=== PATIENT | female | born 1945 | race Caucasian/White ===

== ENCOUNTER → 2025-02-15 14:57 | Outpatient (CLI) | payer MEDICARE, SELFPAY | LOC: LAB 14:58 | PROVIDERS: Visit Provider Student in an Organized Health Care Education/Training Program | DX: R31.9 Hematuria, unspecified (principal) | CPT/HCPCS: 87086 ==

== ENCOUNTER 2025-02-28 09:58 | Emergency (ER) | payer MEDICARE, SELFPAY ==
[2025-02-28] VITALS (18 sets, daily range): BP systolic 96–113; BP diastolic 51–57; PULSE 64–96; RESP 18–38; TEMP 37.4; O2SAT 94–99; BMI 19.2
--- NOTE | 2025-02-28 10:44 | PC.NURSE ---
unsuccessful IV attempt x 2, gauze placed, labs were obtained.
--- NOTE | 2025-02-28 10:46 | ED_ITS ---
HPI - General Adult General Chief complaint: Abdominal Pain Stated complaint: Fever 102.5 last night, bloody loose stool Time Seen by Provider: 02/28/25 10:13 Source: patient Mode of arrival: Ambulatory History of Present Illness HPI narrative: 79-year-old woman who lives on her boat in [facility] no prescription medications presents complaining of diarrhea starting last night, foul-smelling, fever to 102.5 increasing weakness and overall concerned that perhaps or something in the water lines in the both that may be creating her issues. She notes that 3 weeks ago she had a severe upper respiratory infection she was actually sick for a week and the more covering for another week. She had developed some bloody urine was treated with antibiotics after being seen by an urgent care in [place], did not seem to improve, was seen again at an urgent care here started on cephalexin which was associated with the gross hematuria resolving so she chose to continue the complete prescription despite urinalysis showing no growth. The gross hematuria has resolved. The diarrhea that is develop she describes as a bilious yellow with no blood in. Over the last 1-2 days she has been having increasing malaise, generalized abdominal pain, decreased appetite, has not been eating drinking much but has not had any overt vomiting. No chest pain, cough, headaches Related Data Previous Rx's ?Medication ?Instructions ?Recorded fidaxomicin 200 mg tablet 200 mg PO Q12H 10 days #20 t abs 02/28/25 vancomycin 125 mg capsule 125 mg PO QID #40 caps 02/28 Allergies Allergy/AdvReac Type Severity Reaction Status Date / Time Sulfa (Sulfonamide Allergy ITCHING Verified 02/28/25 10:12 Antibiotics) Review of Systems Review of Systems Narrative: Pertinent positive and negative findings as per HPI Patient History Social History Smoking Status: Never smoker Smoking Status: Never smoker Exam Initial Vital Signs Initial Vital Signs: Vital Signs Temperature 99.4 F 02/28/25 10:12 Pulse Rate 96 H 02/28/25 10:12 Respiratory Rate 18 02/28/25 10:12 Blood Pressure 108/57 L 02/28/25 10:12 Pulse Oximetry 96 02/28/25 10:12 Oxygen Delivery Method Room Air 02/28/25 10:12 General: Slightly fatigued but overall in no acute distress. Able to give a complete and coherent history. HEENT: Dry mucous membranes, normal sclera with reactive pupils, Respiratory: Lungs are clear to auscultation, no wheezing no rales no rhonchi. Full and symmetrical air movement Cardiac: Regular rate and rhythm no murmurs no bruits Abdomen: Soft, nontender, she does not have hyper bowel tones, no rebound or guarding, no flank pain Skin: Warm and dry, no rashes Neurologic: Grossly neurologically intact with no obvious asymmetries or abnormalities Extremities: No trauma, well perfused Psych: Cooperative, appropriate insight and affect Course Orders Ordered: ED Orders 02/28/25 10:48 Complete Blood Count AUTO DIFF Stat Comprehensive Metabolic Panel Stat Lipase Stat 02/28/25 12:30 GI Panel (Film Array) Stat Urinalysis Screen (Dip Only) Stat Urine Microscopic Stat Ondansetron HCl (Ondansetron 4 Mg/2 Ml Inj) 4 mg IV NOW PRN PRN Reason: Nausea And Vomiting Last Admin: 02/28/25 10:52 Dose: 4 mg Documented By: KARLA Ondansetron HCl (Ondansetron 4 Mg Odt) 4 mg PO NOW PRN PRN Reason: Nausea And Vomiting Discontinued Medications Sodium Chloride (Normal Saline 0.9%) 1,000 mls @ 1,000 mls/hr IV BOLUS ONE Stop: 02/28/25 11:56 Last Infusion: 02/28/25 12:44 Dose: Infused Documented By: Admin: 02/28/25 11:05 Dose: 1,000 mls/hr Documented By: KARLA Ondansetron HCl (Ondansetron 4 Mg/2 Ml Inj) 4 mg IV NOW ONE Stop: 02/28/25 10:58 Last Admin: 02/28/25 11:23 Dose: Not Given Documented By: KARLA Vital Signs Vital signs: Vital Signs - 8 hr 02/28/25 10:12 02/28/25 10:13 02/28/25 10:13 Temperature 99.4 F Pulse Rate 96 H 92 H Pulse Rate [Orthostatic Lying] Pulse Rate [Orthostatic Sitting] Pulse Rate [Orthostatic Standing] Respiratory Rate 18 Blood Pressure 108/57 L 108/57 L Blood Pressure [Orthostatic Lying] Blood Pressure [Orthostatic Sitting] Blood Pressure [Orthostatic Standing] Pulse Oximetry 96 96 Oxygen Delivery Method Room Air 02/28/25 10:30 02/28/25 10:30 02/28/25 11:00 Temperature Pulse Rate 91 H Pulse Rate [Orthostatic Lying] Pulse Rate [Orthostatic Sitting] Pulse Rate [Orthostatic Standing] Respiratory Rate 18 Blood Pressure 97/51 L 96/55 L Blood Pressure [Orthostatic Lying] Blood Pressure [Orthostatic Sitting] Blood Pressure [Orthostatic Standing] Pulse Oximetry 96 Oxygen Delivery Method 02/28/25 11:00 02/28/25 11:29 02/28/25 11:30 Temperature Pulse Rate 89 78 Pulse Rate [Orthostatic Lying] Pulse Rate [Orthostatic Sitting] Pulse Rate [Orthostatic Standing] Respiratory Rate 20 20 Blood Pressure 109/56 L Blood Pressure [Orthostatic Lying] Blood Pressure [Orthostatic Sitting] Blood Pressure [Orthostatic Standing] Pulse Oximetry 94 99 Oxygen Delivery Method 02/28/25 11:30 02/28/25 12:00 02/28/25 12:00 Temperature Pulse Rate 78 82 Pulse Rate [Orthostatic Lying] Pulse Rate [Orthostatic Sitting] Pulse Rate [Orthostatic Standing] Respiratory Rate Blood Pressure 105/54 L Blood Pressure [Orthostatic Lying] Blood Pressure [Orthostatic Sitting] Blood Pressure [Orthostatic Standing] Pulse Oximetry 98 98 Oxygen Delivery Method Room Air 02/28/25 13:51 Temperature Pulse Rate Pulse Rate [Orthostatic Lying] 75 Pulse Rate [Orthostatic Sitting] 82 Pulse Rate [Orthostatic Standing] 86 Respiratory Rate Blood Pressure Blood Pressure [Orthostatic Lying] 106/53 L Blood Pressure [Orthostatic Sitting] 106/52 L Blood Pressure [Orthostatic Standing] 107/54 L Pulse Oximetry Oxygen Delivery Method Medical Decision Making Lab Data 02/28/25 10:48 02/28/25 10:48 Labs: Lab Results 02/28/25 02/28/25 Range/Units 10:48 12:30 WBC 11.9 H (4.5-11.0) X10^3/uL RBC 4.13 (4.0-5.2) X10^6/uL Hgb 12.5 (12.0-16.0) g/dL Hct 37.0 (36-46) % MCV 89.5 (80-100) fL MCH 30.3 (26-34) PG MCHC 33.9 (30-36) % RDW 13.3 (11.6-14.8) % Plt Count 219 (150-400) X10^3/uL Neut % (Auto) 81.8 H (50-75) % Lymph % (Auto) 6.1 L (25-40) % [place] % (Auto) 11.9 (3-14) % Eos % (Auto) 0.0 L (2-4) % Baso % (Auto) 0.2 (0-2) % Neut # (Auto) 9700 H (8571-8516) /uL Lymph # (Auto) 700 L (1138-7488) /uL [place] # (Auto) 1400 H (0-900) /uL Eos # (Auto) 0 (0-450) /uL Baso # (Auto) 0 (0-100) /uL Sodium 131 L (137-145) mmol/L Potassium 3.9 (3.4-5.1) mmol/L Chloride 99 (98-107) mmol/L Carbon Dioxide 22 (22-32) mmol/L BUN 26 H (7-17) mg/dL Creatinine 0.82 (0.52-1.04) mg/dL Estimated GFR > 60 (>60) mL/min BUN/Creatinine Ratio 31.7 H (6-22) Glucose 141 H (70-99) mg/dL Calcium 8.9 (8.4-10.2) mg/dL Total Bilirubin 1.0 (0.2-1.3) mg/dL AST 31 (14-36) IU/L ALT 21 (<35) IU/L Alkaline Phosphatase 72 (38-126) U/L Total Protein 7.3 (6.3-8.2) g/dL Albumin 4.3 (3.5-5.0) g/dL Globulin 3.0 (1.7-4.1) g/dL Albumin/Globulin Ratio 1.4 (1.0-2.8) Lipase 21 L (23-300) U/L Urine Color Yellow Urine Appearance Clear Urine pH 5.5 (4.5-8.0) Ur Specific [place] 1.015 (1.000-1.035) Urine Protein Trace H (Negative) Urine Glucose (UA) Negative (Negative) g/dL Urine Ketones Trace H (NEGATIVE) Urine Occult Blood Trace-intact (Negative) Urine Nitrate Negative (Negative) Urine Bilirubin Negative (NEGATIVE) Urine Urobilinogen 0.2 (0.2) E.U./dL Ur Leukocyte Esterase Negative (NEGATIVE) Urine RBC 1-5/hpf (0-5/HPF) Urine WBC 0-1/hpf (0-5/HPF) Ur Squamous Epith Cells 0-1 /hpf (0-5/HPF) Urine Bacteria None seen (None) Ur Culture Indicated? Cult not indicated Vol Urine Centrifuged 10ml (spun) Stl C. cayetanensis PCR Not detected (Not Detect) Stool Rotavirus (PCR) Not detected (Not Detect) Stool Adenovirus (PCR) Not detected (Not Detect) Stool Astrovirus (PCR) Not detected (Not Detect) Stool Cryptosporidium PCR Not detected (Not Detect) Stl E.coli Shiga Tox PCR Not detected (Not Detect) St Sh/Enteroin Ecoli PCR Not detected (Not Detect) Stl Enterotoxigenic E PCR Not detected (Not Detect) Stool EPEC (PCR) Not detected (Not Detect) Stl E. histolytica PCR Not detected (Not Detect) Stool Giardia Lamblia PCR Not detected (Not Detect) Stool Sapovirus (PCR) Not detected (Not Detect) Stl P. shigelloides PCR Not detected (Not Detect) St Y.enterocolitica PCR Not detected (Not Detect) Stool Vibrio (PCR) Not detected (Not Detect) Stl Vibrio cholerae PCR Not detected (Not Detect) Stl Enteroaggr Ecoli PCR Not detected (Not Detect) Stl Norovirus GI/GII PCR Not detected (Not Detect) Campylobacter (PCR) Not detected (Not Detect) C. difficile Tox (PCR) Detected H (Not Detect) Salmonella (PCR) Not detected (Not Detect) MDM Narrative Medical decision making narrative: CC: Fever with the abdominal pain Complicating co-morbidities: Recent antibiotics for gross hematuria, eventual urine culture did not show urinary tract infection Data collected from: patient Social determinants of health that may influence the patients condition: Currently living off of her both in [facility] Medical records reviewed: Urgent care note from February 15 with subsequent negative urine culture reviewed Differential considered: Clostridium difficile, infectious diarrhea, viral gastroenteritis Exam documented above, pertinent findings include: Patient appears somewhat fatigued but exam is otherwise benign. Abdomen is minimally tender but certainly no acute abdomen Lab Test results independently reviewed as above. Pertinent findings: CBC shows mild leukocytosis at 11.9 with left shift at 81.8. No anemia Chemistries are reassuring with normal renal function. Slightly increased BUN. Liver studies are unremarkable Lipase is normal Urine does not suggest infection Stool returns positive for C diff Treatments: Fluids and Zofran are given, initial dose of digoxin given Discussion: Patient is feeling somewhat better, blood pressures are closer to her baseline which she reports are typically quite low with systolics under 110 at her baseline. Reviewed findings, currently there is no indication for severe surgical complications of her C diff and no signs of sepsis. She will be given a prescription for fidaxomicin 200 mg twice a day for 10 days, we will also give her a prescription for vancomycin 125 mg orally 4 times a day for 10 days if she has difficulty obtaining the fidaxomicin prescription she can use this as a backup. I will also be given a prescription for Zofran, explained anticipated course of disease, complications and reasons to return to the emergency department. This point there was no indication for further imaging or hospitalization and she is safe for discharge Discharge Plan Departure Patient Disposition: Home Clinical Impression: C. difficile diarrhea Instructions: DI for Clostridioides difficile Infection Activity Restrictions/Additional Instructions: Thank you for coming in today Unfortunately it looks like the antibiotics used for your bladder infection have cause the good bacteria in your gut to as well. This leaves an opportunity for bacteria in your gut that can cause problems to grow. You are testing positive for Clostridium difficile. We need to put you on antibiotics that are not absorbed in your body, that kill only the Clostridium difficile but allow healthy bacteria to recall any your colon. I have given you a prescription for fidaxomicin for 10 days. This is first-line treatment but has been difficult to obtain and can be expensive. If you have difficulty filling this prescription than please use or second-line treatment which is vancomycin as a pill. You have been given prescriptions for both, you only need to fill 1 of these This is the type of diarrhea where you do not want to use Imodium, you want to get all of that out Please make sure you are staying hydrated. If you have worsening abdominal pain, worsening fevers, any blood in your stool or new findings you do need to return to the emergency department Prescriptions: New fidaxomicin 200 mg tablet 200 mg PO Q12H 10 Days Qty: 20 0RF vancomycin 125 mg capsule 125 mg PO QID Qty: 40 0RF Referrals: Miscellaneous,Doctor, [Primary Care Provider, Medical] Stand Alone Forms: Patient Portal/API
[2025-02-28] MEDS: ONDANSETRON 4 MG/2 ML INJ IV (10:52)
[2025-02-28 10:59] LABS: Add Manual Diff / Slide Review NO; Basophils Absolute Auto 0 /uL (0-100); Basophils Percent Auto 0.2 % (0-2); Eosinophils Absolute Auto 0 /uL (0-450); Hemoglobin 12.5 g/dL (12.0-16.0); Lymphocytes Absolute Auto 700 /uL (1100-4500); Lymphocytes Percent Auto 6.1 % (25-40); Mean Corpuscular HGB Conc 33.9 % (30-36); Mean Corpuscular Hemoglobin 30.3 PG (26-34); Mean Corpuscular Volume 89.5 fL (80-100); Monocytes Absolute Auto 1400 /uL (0-900); Monocytes Percent Auto 11.9 % (3-14); Neutrophils Absolute Auto 9700 /uL (1500-7000); Neutrophils Percent Auto 81.8 % (50-75); Platelet Count 219 X10^3/uL (150-400); Red Blood Cell Count 4.13 X10^6/uL (4.0-5.2); Red Cell Distribution Width 13.3 % (11.6-14.8); White Blood Cell Count 11.9 X10^3/uL (4.5-11.0)
[2025-02-28] MEDS: SODIUM CHLORIDE 0.9% 1,000 ML 1000 ML IV (11:05)
[2025-02-28 11:12] LABS: Alanine Aminotransferase 21 IU/L (<35); Albumin 4.3 g/dL (3.5-5.0); Albumin Globulin Ratio 1.4 (1.0-2.8); Alkaline Phosphatase 72 U/L (38-126); Aspartate Aminotransferase 31 IU/L (14-36); BUN Creatinine Ratio 31.7 (6-22); Blood Urea Nitrogen 26 mg/dL (7-17); Calcium 8.9 mg/dL (8.4-10.2); Carbon Dioxide 22 mmol/L (22-32); Chloride 99 mmol/L (98-107); Estimated Glomerular Filt Rate > 60 mL/min (>60); Glucose 141 mg/dL (70-99); HEMOLYSIS < 15 (0-50); Lipase 21 U/L (23-300); Potassium 3.9 mmol/L (3.4-5.1); Sodium 131 mmol/L (137-145); Total Protein 7.3 g/dL (6.3-8.2)
[2025-02-28 12:58] LABS: Appearance Urine UA CLEAR; Bilirubin Urine UA NEGATIVE (NEGATIVE); Color Urine UA YELLOW; Glucose Urine UA NEGATIVE (Negative); Ketones Urine UA TRACE (NEGATIVE); Leukocyte Esterase Urine UA NEGATIVE (NEGATIVE); Nitrite Urine UA NEGATIVE (Negative); Occult Blood Urine UA TRACE-INTACT (Negative); Protein Urine UA TRACE (Negative); Specific Gravity Urine UA 1.015 (1.000-1.035); Urobilinogen Urine UA 0.2 E.U./dL (0.2)
[2025-02-28 13:07] LABS: pH Urine UA 5.5 (4.5-8.0)
[2025-02-28 13:08] LABS: Urine Volume 10mL (spun)
[2025-02-28 13:09] LABS: Bacteria Urine None Seen; RBC Urine 1-5/HPF (0-5/HPF); Squamous Epithelial Cell Urine 0-1 /HPF (0-5/HPF); WBC Urine 0-1/HPF (0-5/HPF)
[2025-02-28 13:11] LABS: Culture Indicated Urine Cult Not Indicated
[2025-02-28 14:08] LABS: Adenovirus F 40/41 Not Detected (Not Detect); Astrovirus Not Detected (Not Detect); Campylobacter Not Detected (Not Detect); Clostridium difficile toxin AB Detected (Not Detect); Cryptosporidium Not Detected (Not Detect); Cyclospora cayetanensis Not Detected (Not Detect); Entamoeba histolytica Not Detected (Not Detect); Enteroaggregative E.coli Not Detected (Not Detect); Enteropathogenic E.coli Not Detected (Not Detect); Enterotoxigenic E.coli It/st Not Detected (Not Detect); Giardia lamblia Not Detected (Not Detect); Norovirus GI/GII Not Detected (Not Detect); Plesiomonsa shigelloides Not Detected (Not Detect); Rotavirus A Not Detected (Not Detect); Salmonella Not Detected (Not Detect); Sapovirus Not Detected (Not Detect); Shiga-like toxin-prod E.coli Not Detected (Not Detect); Shigella/Enteroinvasive E.coli Not Detected (Not Detect); Vibrio Not Detected (Not Detect); Vibrio cholerae Not Detected (Not Detect); Yersinia enterocolitica Not Detected (Not Detect)
[2025-02-28] MEDS: FIDAXOMICIN 200 MG TABLET PO (14:57)
== END 2025-02-28 15:25 | disposition home or self-care (01) ==
PROVIDERS: Emergency Provider Emergency Medicine
DX: A04.72 Enterocolitis due to Clostridium difficile, not specified as recurrent (principal); R50.9 Fever, unspecified
CPT/HCPCS: 36415; 80053; 81003; 81015; 83690; 85025; 87324; 87507; 96361; 96374; 99284; J2405

== ENCOUNTER → 2025-03-20 13:01 | Outpatient (CLI) | payer MEDICARE, SELFPAY ==
--- NOTE | 2025-03-20 13:04 | DI.CT.S_ITS ---
PROCEDURE: CT IVP A/P W/WO INDICATIONS: 79 y/o F w/ gross hematuria, eval upper tracts TECHNIQUE: Optional 5 mm thick noncontrast images acquired from the diaphragm to the symphysis pubis. After the administration of intravenous contrast, 5 mm thick images acquired from the diaphragm to the symphysis pubis after a 10-minute delay. 2 mm thick coronal and sagittal reformats were then performed of the kidneys and ureters. For radiation dose reduction, the following was used: automated exposure control, adjustment of mA and/or kV according to patient size. COMPARISON: None. FINDINGS: Image quality: Diagnostic. Kidneys and Ureters: There is a 5 x 3 millimeter calculus in the right renal pelvis. No ureteral calculi or hydronephrosis. No focal lesions or abnormal enhancement in the kidneys bilaterally. Bladder: Bladder wall thickness is normal. No calcified bladder stones. OTHER: Lower chest: Unremarkable. Liver: No solid mass. Gallbladder: No radiopaque gallstones or wall thickening. Biliary ducts: No biliary dilation. Pancreas: No ductal dilation. Spleen: Size is within normal limits. Adrenal Glands: No adrenal nodules. Stomach and Bowel: Normal colonic caliber, without significant wall thickening. Peritoneum: No abnormal intraperitoneal fluid. No free air. Ventral Wall: No hernia. Abdominal Nodes: No retroperitoneal or mesenteric adenopathy by size criteria. Vessels: Aorta and inferior vena cava are normal in size. PELVIS: Pelvic Organs: Unremarkable. Pelvic Nodes: No enlarged lymph nodes. Miscellaneous: No inguinal hernias are seen. Bones: No aggressive osseous abnormality. IMPRESSION: 1. There is a 5 millimeter nonobstructing calculus in the right renal pelvis. No ureteral calculi or signs of obstructive uropathy. 2. No suspicious focal lesions in the kidneys and upper tracts. Dictated by: Aquiles Mckenna M.D. on 03/20/2025 at 16:22 Approved by: Aqiules Mckenna M.D. on 03/20/2025 at 16:29
== END ==
PROVIDERS: Referring Provider Urology; Visit Provider Urology
DX: N20.0 Calculus of kidney (principal); R31.0 Gross hematuria
CPT/HCPCS: 74178; Q9967

== ENCOUNTER → 2025-04-11 16:39 | Outpatient (CLI) | payer MEDICARE, SELFPAY | PROVIDERS: Visit Provider Nurse Practitioner Family | DX: R31.0 Gross hematuria (principal) | CPT/HCPCS: 87086 ==

== ENCOUNTER 2025-04-13 11:43 | Emergency (ER) | payer MEDICARE, SELFPAY ==
[2025-04-13 12:01] VITALS: PULSE 87; O2SAT 96
[2025-04-13 12:02] VITALS: BP 132/63; PULSE 90; O2SAT 97
[2025-04-13 12:08] LABS: Appearance Urine UA CLEAR; Bilirubin Urine UA 1+ (NEGATIVE); Color Urine UA YELLOW; Glucose Urine UA NEGATIVE (Negative); Ketones Urine UA TRACE (NEGATIVE); Leukocyte Esterase Urine UA TRACE (NEGATIVE); Nitrite Urine UA POSITIVE (Negative); Occult Blood Urine UA TRACE-INTACT (Negative); Protein Urine UA 2+ (Negative); Specific Gravity Urine UA >=1.030 (1.000-1.035); Urobilinogen Urine UA 0.2 E.U./dL (0.2)
[2025-04-13 12:09] LABS: pH Urine UA 5.5 (4.5-8.0)
[2025-04-13 12:10] LABS: Ictotest Urine Negative (Negative)
[2025-04-13 12:11] VITALS: BP 132/63; PULSE 91; RESP 16; TEMP 36.7; O2SAT 98; BMI 18.7
[2025-04-13 12:13] LABS: Culture Indicated Urine Specimen Cultured
--- NOTE | 2025-04-13 12:14 | ED_ITS ---
<Statement entered by Uriah James, DO - 04/13/25 17:52> Co-sign statement: I was available for consultation during this patient's emergency department visit. This chart is being signed by myself for administrative purposes only. I do not have direct contact with this patient during this visit. They were seen independently by the APC. HPI - Female Genitourinary <Marlen Callejas PA-C - Last Filed: 04/13/25 16:42> General Chief complaint: Urogenital-Female Stated complaint: Possible UTI x 7 days Time Seen by Provider: 04/13/25 11:45 History of Present Illness HPI Narrative: Ms. Villalobos is a pleasant 71-year-old female with a past medical history of C difficile 1st diagnosed 02/28/2025, hypothyroidism who presents to the emergency department for concern of UTI x7 days. Patient states she initially developed hematuria and UTI symptoms in early February and Denny, she was started on Macrobid for UTI but symptoms did not improve so she was switched to Keflex, symptoms resolved after 2 days on the Keflex she was called and told to stop taking the antibiotics urine culture was negative however because it was effective in treating her UTI symptoms she had complete the course. However shortly after she developed significant diarrhea and fevers and was seen in this emergency department and diagnosed with C difficile. She completed a course of vancomycin but had persistent diarrhea. She went to an urgent care in March and was started on a vancomycin taper which she is still taking. However about 7 days ago she started developing UTI symptoms again which she describes as vulvar burning and urinary frequency. Therefore she went to the walk-in clinic 2 days ago and was started on Macrobid for a positive point of care urinalysis and she was also started on Flagyl for her persistent diarrhea. However despite continuing to have UTI type symptoms, the patient was called today to stop taking her antibiotic because her urine culture had no growth. Therefore she is here for persistent UTI symptoms. Reports that her diarrhea is persistent but slightly better, she is having about 3 episodes of loose watery brown stool a day. For her history of hematuria, she did follow up with our urologist and had reassuring CT IVP and cystoscopy revealing only a small right-sided intrarenal stone. At this time she denies chest pain, shortness of breath, fevers, chills, nausea, vomiting, abdominal pain, flank pain, back pain. Related Data Home Medications ?Medication ?Instructions ?Recorded ?Confirmed levothyroxine 125 mcg tablet 125 mcg PO DAILY 03/09/25 03/24/25 (Synthroid) levothyroxine 50 mcg tablet 50 mcg PO DAILY 03/09/25 0 03/24/25 (Synthroid) Previous Rx's ?Medication ?Instructions ?Recorded vancomycin 125 mg capsule 125 mg PO QID #40 caps 02/28 metronidazole 500 mg tablet 500 mg PO BID 7 days #14 t abs 04/11/25 nitrofurantoin 100 mg PO Q12H 5 days #10 ca ps 04/11/25 monohydrate/macrocrystals 100 mg capsule (Macrobid) cephalexin 500 mg capsule 500 mg PO BID 7 days #14 cap s 04/13/25 Allergies Allergy/AdvReac Type Severity Reaction Status Date / Time Sulfa (Sulfonamide Allergy ITCHING Verified 04/13/25 12:13 Antibiotics) Review of Systems <NACNY Dumont Last Filed: 04/13/25 16:42> Review of Systems ROS Unobtainable: All systems reviewed & are unremarkable except as noted in HPI and below Exam <NANCY Dumont Last Filed: 04/13/25 16:42> Narrative Exam Narrative: GENERAL: 79 year old patient appears stated age. Thin elderly patient, in no acute distress. HEAD: Atraumatic. Normocephalic. EYES: No scleral icterus. No injection or drainage. NECK: Trachea midline. Cervical ROM intact. CARDIOVASCULAR: Regular rate and rhythm. RESPIRATORY: ?Nonlabored respirations. ?Speaking in clear, full sentences. ? GASTROINTESTINAL: Abdomen soft, non-tender, nondistended. BS present. EXTREMITIES: No LE edema. NEURO: AOx3. ?Clear speech. ?Moves all 4 extremities appropriately. SKIN: No rash or erythema of visible areas Initial Vital Signs Initial Vital Signs: Vital Signs Pulse Rate 87 04/13/25 12:01 Pulse Oximetry 96 04/13/25 12:01 <Uriah James DO - Last Filed: 04/14/25 07:01> Initial Vital Signs Initial Vital Signs: Vital Signs Pulse Rate 87 04/13/25 12:01 Pulse Oximetry 96 04/13/25 12:01 Course <NANCY Dumont Last Filed: 04/13/25 16:42> Orders Ordered: Discontinued Medications Sodium Chloride (Normal Saline 0.9%) 1,000 mls @ 1,000 mls/hr IV BOLUS ONE Stop: 04/13/25 13:27 Last Infusion: 04/13/25 14:28 Dose: Infused Documented By: Admin: 04/13/25 13:07 Dose: 1,000 mls/hr Documented By: BT Ondansetron HCl (Ondansetron 4 Mg/2 Ml Inj) 4 mg IV NOW PRN PRN Reason: Nausea And Vomiting Ondansetron HCl (Ondansetron 4 Mg Odt) 4 mg PO NOW PRN PRN Reason: Nausea And Vomiting Vital Signs Vital signs: Vital Signs - 8 hr 04/13/25 12:01 04/13/25 12:02 04/13/25 12:02 Temperature Pulse Rate 87 90 Respiratory Rate Blood Pressure 132/63 Pulse Oximetry 96 97 Oxygen Delivery Method 04/13/25 12:11 04/13/25 12:30 04/13/25 12:30 Temperature 98.1 F Pulse Rate 91 H 79 Respiratory Rate 16 14 Blood Pressure 132/63 105/59 L Pulse Oximetry 98 96 Oxygen Delivery Method Room Air Room Air 04/13/25 13:00 04/13/25 13:00 04/13/25 15:57 Temperature Pulse Rate 72 64 Respiratory Rate Blood Pressure 119/59 L 130/62 Pulse Oximetry 98 98 Oxygen Delivery Method Room Air <Uriah James, - Last Filed: 04/14/25 07:01> Orders Ordered: Discontinued Medications Sodium Chloride (Normal Saline 0.9%) 1,000 mls @ 1,000 mls/hr IV BOLUS ONE Stop: 04/13/25 13:27 Last Infusion: 04/13/25 14:28 Dose: Infused Documented By: Admin: 04/13/25 13:07 Dose: 1,000 mls/hr Documented By: BT Ondansetron HCl (Ondansetron 4 Mg/2 Ml Inj) 4 mg IV NOW PRN PRN Reason: Nausea And Vomiting Ondansetron HCl (Ondansetron 4 Mg Odt) 4 mg PO NOW PRN PRN Reason: Nausea And Vomiting Vital Signs Vital signs: Vital Signs - 8 hr 04/13/25 12:01 04/13/25 12:02 04/13/25 12:02 Temperature Pulse Rate 87 90 Respiratory Rate Blood Pressure 132/63 Pulse Oximetry 96 97 Oxygen Delivery Method 04/13/25 12:11 04/13/25 12:30 04/13/25 12:30 Temperature 98.1 F Pulse Rate 91 H 79 Respiratory Rate 16 14 Blood Pressure 132/63 105/59 L Pulse Oximetry 98 96 Oxygen Delivery Method Room Air Room Air 04/13/25 13:00 04/13/25 13:00 04/13/25 15:57 Temperature Pulse Rate 72 64 Respiratory Rate Blood Pressure 119/59 L 130/62 Pulse Oximetry 98 98 Oxygen Delivery Method Room Air MDM - Female Genitourinary <Marlen Callejas PA-C - Last Filed: 04/13/25 16:42> Medical Records Attestation: I reviewed the patient's medical records. Lab Data 04/13/25 12:40 04/13/25 12:40 Labs: Lab Results 04/13/25 04/13/25 04/13/25 Range/Units 11:54 12:40 13:44 WBC 8.2 (4.5-11.0) X10^3/uL RBC 4.38 (4.0-5.2) X10^6/uL Hgb 13.4 (12.0-16.0) g/dL Hct 39.6 (36-46) % MCV 90.4 (80-100) fL MCH 30.7 (26-34) PG MCHC 33.9 (30-36) % RDW 13.9 (11.6-14.8) % Plt Count 212 (150-400) X10^3/uL Neut % (Auto) 75.4 H (50-75) % Lymph % (Auto) 10.3 L (25-40) % Villalba % (Auto) 10.5 (3-14) % Eos % (Auto) 3.4 (2-4) % Baso % (Auto) 0.4 (0-2) % Neut # (Auto) 6200 (9557-1544) /uL Lymph # (Auto) 800 L (2503-1717) /uL Villalba # (Auto) 900 (0-900) /uL Eos # (Auto) 300 (0-450) /uL Baso # (Auto) 0 (0-100) /uL Sodium 140 (137-145) mmol/L Potassium 4.1 (3.4-5.1) mmol/L Chloride 100 (98-107) mmol/L Carbon Dioxide 28 (22-32) mmol/L BUN 20 H (7-17) mg/dL Creatinine 0.79 (0.52-1.04) mg/dL Estimated GFR > 60 (>60) mL/min BUN/Creatinine Ratio 25.3 H (6-22) Glucose 115 H (70-99) mg/dL Calcium 10.1 (8.4-10.2) mg/dL Magnesium 1.8 (1.6-2.3) mg/dL Total Bilirubin 0.7 (0.2-1.3) mg/dL AST 31 (14-36) IU/L ALT 21 (<35) IU/L Alkaline Phosphatase 69 (38-126) U/L Total Protein 8.2 (6.3-8.2) g/dL Albumin 4.9 (3.5-5.0) g/dL Globulin 3.3 (1.7-4.1) g/dL Albumin/Globulin Ratio 1.5 (1.0-2.8) Urine Color Yellow Urine Appearance Clear Urine pH 5.5 (4.5-8.0) Ur Specific [place] >=1.030 H (1.000-1.035) Urine Protein 2+ H (Negative) Urine Glucose (UA) Negative (Negative) g/dL Urine Ketones Trace H (NEGATIVE) Urine Occult Blood Trace-intact (Negative) Urine Nitrate Positive H (Negative) Urine Bilirubin 1+ H (NEGATIVE) Ur Bilirubin Confirm Negative (Negative) Urine Urobilinogen 0.2 (0.2) E.U./dL Ur Leukocyte Esterase Trace H (NEGATIVE) Urine RBC 0-1/hpf (0-5/HPF) Urine WBC 1-5/hpf (0-5/HPF) Ur Squamous Epith Cells None seen (0-5/HPF) Urine Bacteria Moderate (10-30) H (None) Hyaline Casts 1-5/lpf (None) Urine Mucus 2+ H (Negative) Ur Culture Indicated? Specimen cultured Vol Urine Centrifuged Low vol <10ml unspun A Stl C. cayetanensis PCR Not detected (Not Detect) Stool Rotavirus (PCR) Not detected (Not Detect) Stool Adenovirus (PCR) Not detected (Not Detect) Stool Astrovirus (PCR) Not detected (Not Detect) Stool Cryptosporidium PCR Not detected (Not Detect) Stl E.coli Shiga Tox PCR Not detected (Not Detect) St Sh/Enteroin Ecoli PCR Not detected (Not Detect) Stl Enterotoxigenic E PCR Not detected (Not Detect) Stool EPEC (PCR) Not detected (Not Detect) Stl E. histolytica PCR Not detected (Not Detect) Stool Giardia Lamblia PCR Not detected (Not Detect) Stool Sapovirus (PCR) Not detected (Not Detect) Stl P. shigelloides PCR Not detected (Not Detect) St Y.enterocolitica PCR Not detected (Not Detect) Stool Vibrio (PCR) Not detected (Not Detect) Stl Vibrio cholerae PCR Not detected (Not Detect) Stl Enteroaggr Ecoli PCR Not detected (Not Detect) Stl Norovirus GI/GII PCR Not detected (Not Detect) Campylobacter (PCR) Not detected (Not Detect) C. difficile Tox (PCR) Not detected (Not Detect) Salmonella (PCR) Not detected (Not Detect) MDM Narrative Medical decision making narrative: 71-year-old female with a past medical history of C difficile 1st diagnosed 02/28/2025, hypothyroidism who presents to the emergency department for concern of UTI x7 days. Differential diagnosis includes but isn't limited to infectious diarrhea, dehydration, UTI, vulvovaginitis, electrolyte abnormality, etc. On exam the patient is in no acute distress, nontoxic appearing, vital signs appropriate, abdomen soft and nontender. She is currently on a vancomycin taper for persistent C diff but is also having UTI symptoms despite having negative urine culture 2 days ago. Repeat urinalysis was obtained today and is positive for leukocyte esterase, bacteria, nitrate. We will obtain baseline CBC, CMP, magnesium treat with IV fluids, repeat stool culture and consult pharmacy for antibiotic management. 1325: Had a long conversation with our pharmacist about the best way to manage the patient's UTI with her history of C diff. If you test positive for C diff again today we will need to restart taper with vancomycin 4 times a day. Can treat UTI with Keflex with urine culture pending. At this time there is no clear indication for the patient to need Flagyl. Labs reveal normal WBC count 8.2, hemoglobin 13.4 hematocrit 39.6. Platelets 212. Normal sodium 140, potassium 4.1, BUN is 20 creatinine is 0.79. Glucose 115. Normal LFTs. Normal magnesium 1.8. Urinalysis is nitrite positive, moderate amount of bacteria, 1-5 WBCs, trace leukocyte esterase, given her symptoms it is consistent with acute UTI. GI panel negative for everything including C difficile. Therefore we will continue with the normal taper of vancomycin and treat UTI with Keflex b.i.d. x7 days as previously discussed with pharmacy. Patient is agreeable to this plan. Declines 1st dose in the ED, she will pick it up from the pharmacy. Discussed follow up with gastrointestinal doctor, PCP, strict ED return precautions. Patient verbalized understanding of all information and is agreeable to plan. She is stable for discharge home. <Uriah Jaems, DO - Last Filed: 04/14/25 07:01> Lab Data Labs: Lab Results 04/13/25 04/13/25 04/13/25 Range/Units 11:54 12:40 13:44 WBC 8.2 (4.5-11.0) X10^3/uL RBC 4.38 (4.0-5.2) X10^6/uL Hgb 13.4 (12.0-16.0) g/dL Hct 39.6 (36-46) % MCV 90.4 (80-100) fL MCH 30.7 (26-34) PG MCHC 33.9 (30-36) % RDW 13.9 (11.6-14.8) % Plt Count 212 (150-400) X10^3/uL Neut % (Auto) 75.4 H (50-75) % Lymph % (Auto) 10.3 L (25-40) % [place] % (Auto) 10.5 (3-14) % Eos % (Auto) 3.4 (2-4) % Baso % (Auto) 0.4 (0-2) % Neut # (Auto) 6200 (5896-9031) /uL Lymph # (Auto) 800 L (6167-0340) /uL [place] # (Auto) 900 (0-900) /uL Eos # (Auto) 300 (0-450) /uL Baso # (Auto) 0 (0-100) /uL Sodium 140 (137-145) mmol/L Potassium 4.1 (3.4-5.1) mmol/L Chloride 100 (98-107) mmol/L Carbon Dioxide 28 (22-32) mmol/L BUN 20 H (7-17) mg/dL Creatinine 0.79 (0.52-1.04) mg/dL Estimated GFR > 60 (>60) mL/min BUN/Creatinine Ratio 25.3 H (6-22) Glucose 115 H (70-99) mg/dL Calcium 10.1 (8.4-10.2) mg/dL Magnesium 1.8 (1.6-2.3) mg/dL Total Bilirubin 0.7 (0.2-1.3) mg/dL AST 31 (14-36) IU/L ALT 21 (<35) IU/L Alkaline Phosphatase 69 (38-126) U/L Total Protein 8.2 (6.3-8.2) g/dL Albumin 4.9 (3.5-5.0) g/dL Globulin 3.3 (1.7-4.1) g/dL Albumin/Globulin Ratio 1.5 (1.0-2.8) Urine Color Yellow Urine Appearance Clear Urine pH 5.5 (4.5-8.0) Ur Specific [place] >=1.030 H (1.000-1.035) Urine Protein 2+ H (Negative) Urine Glucose (UA) Negative (Negative) g/dL Urine Ketones Trace H (NEGATIVE) Urine Occult Blood Trace-intact (Negative) Urine Nitrate Positive H (Negative) Urine Bilirubin 1+ H (NEGATIVE) Ur Bilirubin Confirm Negative (Negative) Urine Urobilinogen 0.2 (0.2) E.U./dL Ur Leukocyte Esterase Trace H (NEGATIVE) Urine RBC 0-1/hpf (0-5/HPF) Urine WBC 1-5/hpf (0-5/HPF) Ur Squamous Epith Cells None seen (0-5/HPF) Urine Bacteria Moderate (10-30) H (None) Hyaline Casts 1-5/lpf (None) Urine Mucus 2+ H (Negative) Ur Culture Indicated? Specimen cultured Vol Urine Centrifuged Low vol <10ml unspun A Stl C. cayetanensis PCR Not detected (Not Detect) Stool Rotavirus (PCR) Not detected (Not Detect) Stool Adenovirus (PCR) Not detected (Not Detect) Stool Astrovirus (PCR) Not detected (Not Detect) Stool Cryptosporidium PCR Not detected (Not Detect) Stl E.coli Shiga Tox PCR Not detected (Not Detect) St Sh/Enteroin Ecoli PCR Not detected (Not Detect) Stl Enterotoxigenic E PCR Not detected (Not Detect) Stool EPEC (PCR) Not detected (Not Detect) Stl E. histolytica PCR Not detected (Not Detect) Stool Giardia Lamblia PCR Not detected (Not Detect) Stool Sapovirus (PCR) Not detected (Not Detect) Stl P. shigelloides PCR Not detected (Not Detect) St Y.enterocolitica PCR Not detected (Not Detect) Stool Vibrio (PCR) Not detected (Not Detect) Stl Vibrio cholerae PCR Not detected (Not Detect) Stl Enteroaggr Ecoli PCR Not detected (Not Detect) Stl Norovirus GI/GII PCR Not detected (Not Detect) Campylobacter (PCR) Not detected (Not Detect) C. difficile Tox (PCR) Not detected (Not Detect) Salmonella (PCR) Not detected (Not Detect) MDM Narrative Medical decision making narrative: 71-year-old female with a past medical history of C difficile 1st diagnosed 02/28/2025, hypothyroidism who presents to the emergency department for concern of UTI x7 days. Differential diagnosis includes but isn't limited to infectious diarrhea, dehydration, UTI, vulvovaginitis, electrolyte abnormality, etc. On exam the patient is in no acute distress, nontoxic appearing, vital signs appropriate, abdomen soft and nontender. She is currently on a vancomycin taper for persistent C diff but is also having UTI symptoms despite having negative urine culture 2 days ago. Repeat urinalysis was obtained today and is positive for leukocyte esterase, bacteria, nitrate. We will obtain baseline CBC, CMP, magnesium treat with IV fluids, repeat stool culture and consult pharmacy for antibiotic management. 1325: Had a long conversation with our pharmacist about the best way to manage the patient's UTI with her history of C diff. If you test positive for C diff again today we will need to restart taper with vancomycin 4 times a day. Can treat UTI with Keflex with urine culture pending. At this time there is no clear indication for the patient to need Flagyl. Labs reveal normal WBC count 8.2, hemoglobin 13.4 hematocrit 39.6. Platelets 212. Normal sodium 140, potassium 4.1, BUN is 20 creatinine is 0.79. Glucose 115. Normal LFTs. Normal magnesium 1.8. Urinalysis is nitrite positive, moderate amount of bacteria, 1-5 WBCs, trace leukocyte esterase, given her symptoms it is consistent with acute UTI. GI panel negative for everything including C difficile. Therefore we will continue with the normal taper of vancomycin and treat UTI with Keflex b.i.d. x7 days as previously discussed with pharmacy. Patient is agreeable to this plan. Declines 1st dose in the ED, she will pick it up from the pharmacy. Discussed follow up with gastrointestinal doctor, PCP, strict ED return precautions. Patient verbalized understanding of all information and is agreeable to plan. She is stable for discharge home. Co-sign statement: I was available for consultation during this patient's emergency department visit. This chart is being signed by myself for administrative purposes only. I do not have direct contact with this patient during this visit. They were seen independently by the APC. Discharge Plan Departure Patient Disposition: Home Clinical Impression: Acute UTI, History of Clostridioides difficile infection Instructions: DI for Urinary Tract Infection (UTI) Activity Restrictions/Additional Instructions: Dear Ms. Villalobos, Thank you for coming to the emergency department. Today we repeated her stool culture and you were negative for C Diff. Please complete the vancomycin taper as previously prescribed. Your urinalysis today was concerning for an infection, so we are starting you on Keflex to take twice a day for the next week to treat this. A new urine culture has been sent as your old urine culture was negative. If your urine cultures continued to be negative, then it is possible that these urine tests are contaminated and not true bacteria from the urinary system. Please rest, hydrate, incorporate probiotics into the diet, complete the full course of Keflex (unless you are called and instructed to change antibiotics) in addition to the full course of the vancomycin taper. Please follow up with your primary care doctor and your GI doctor. Please return to the emergency department if you develop severe pain, fevers, vomiting or any concerns. Please follow up with your primary care doctor within the next 2-3 days for ER follow-up. (If you do not have a PCP you can call [phone]. ?to schedule an appointment with an [facility] Primary Care Provider) IF YOU DEVELOP ANY NEW OR WORSENING SYMPTOMS, RETURN TO THE ER! Please read the attached instructions, they highlight more specific treatments and interventions for you at home. Thank you for letting me participate in your care, Marlen Callejas PA-C Prescriptions: New cephalexin 500 mg capsule 500 mg PO BID 7 Days Qty: 14 0RF No Action metronidazole 500 mg tablet 500 mg PO BID 7 Days Qty: 14 0RF nitrofurantoin monohyd/m-cryst [Macrobid] 100 mg capsule 100 mg PO Q12H 5 Days Qty: 10 0RF Rx Instructions: must administer with a meal/food vancomycin 125 mg capsule 125 mg PO QID Qty: 40 0RF levothyroxine [Synthroid] 50 mcg tablet 50 mcg PO DAILY levothyroxine [Synthroid] 125 mcg tablet 125 mcg PO DAILY Rx Instructions: 3 days a weeks. Takes 1/2 of 125mcg Stand Alone Forms: Patient Portal/API
[2025-04-13 12:30] VITALS: BP 105/59; PULSE 79; RESP 14; O2SAT 96
[2025-04-13 12:50] LABS: Add Manual Diff / Slide Review NO; Hematocrit 39.6 % (36-46); Hemoglobin 13.4 g/dL (12.0-16.0); Lymphocytes Absolute Auto 800 /uL (1100-4500); Mean Corpuscular HGB Conc 33.9 % (30-36); Mean Corpuscular Hemoglobin 30.7 PG (26-34); Mean Corpuscular Volume 90.4 fL (80-100); Platelet Count 212 X10^3/uL (150-400)
[2025-04-13 13:00] VITALS: BP 119/59; PULSE 72; O2SAT 98
[2025-04-13 13:01] LABS: Alanine Aminotransferase 21 IU/L (<35); Albumin 4.9 g/dL (3.5-5.0); Albumin Globulin Ratio 1.5 (1.0-2.8); Alkaline Phosphatase 69 U/L (38-126); Blood Urea Nitrogen 20 mg/dL (7-17); Calcium 10.1 mg/dL (8.4-10.2); Carbon Dioxide 28 mmol/L (22-32); Chloride 100 mmol/L (98-107); Estimated Glomerular Filt Rate > 60 mL/min (>60); Globulin 3.3 g/dL (1.7-4.1); Glucose 115 mg/dL (70-99); HEMOLYSIS < 15 (0-50); Magnesium 1.8 mg/dL (1.6-2.3); Potassium 4.1 mmol/L (3.4-5.1); Sodium 140 mmol/L (137-145); Total Protein 8.2 g/dL (6.3-8.2)
[2025-04-13] MEDS: SODIUM CHLORIDE 0.9% 1,000 ML 1000 ML IV (13:07)
[2025-04-13 15:29] LABS: Clostridium difficile toxin AB Not Detected (Not Detect); Enteroaggregative E.coli Not Detected (Not Detect); Enteropathogenic E.coli Not Detected (Not Detect); Enterotoxigenic E.coli It/st Not Detected (Not Detect); Plesiomonsa shigelloides Not Detected (Not Detect); Shiga-like toxin-prod E.coli Not Detected (Not Detect)
[2025-04-13 15:57] VITALS: BP 130/62; PULSE 64; O2SAT 98
== END 2025-04-13 15:54 | disposition home or self-care (01) ==
PROVIDERS: Family Medicine; Emergency Provider Physician Assistant
DX: N39.0 Urinary tract infection, site not specified (principal); Z87.440 Personal history of urinary (tract) infections; Z86.19 Personal history of other infectious and parasitic diseases
CPT/HCPCS: 36415; 80053; 81001; 83735; 85025; 87086; 87507; 96360; 99284